=== PATIENT | female | born 1985 | race Caucasian/White ===

== ENCOUNTER 2017-01-27 16:51 | Emergency (ER) | payer OTHER, SELFPAY ==
[2017-01-27] MEDS ORDERED: Ibuprofen 800 MG TAB ONE (18:32)
[2017-01-27] MEDS ORDERED: AMOXicillin 250 MG CAP ONE (18:32)
== END 2017-01-27 18:38 | disposition home or self-care (01) ==
LOC: MADERS 16:51
DX: J02.0 Streptococcal pharyngitis (principal); E03.9 Hypothyroidism, unspecified; F90.9 Attention-deficit hyperactivity disorder, unspecified type; Z79.899 Other long term (current) drug therapy
CPT/HCPCS: 87430; 99283

== ENCOUNTER 2017-07-07 17:40 | Emergency (ER) | payer SELFPAY ==
[~2017-07-07 17:40] MED LIST: Adacel (T-DAP) 0.5 ML VIAL ONE
[2017-07-07] MEDS ORDERED: TETANUS AND DIPHTHERIA TOX/PF 0.5 ML DISP.SYRIN ONE (18:10)
[2017-07-07] MEDS ORDERED: Morphine Sulfate 2 MG/ML SYRINGE ONE (18:17)
[2017-07-07] MEDS ORDERED: Naproxen 500 MG TAB ONE (18:17)
[2017-07-07] MEDS ORDERED: Ondansetron ODT 4 MG TAB ONE (18:17)
== END 2017-07-07 19:15 | disposition home or self-care (01) ==
LOC: MADERS 17:40
DX: T24.211A Burn of second degree of right thigh, initial encounter (principal); T21.20XA Burn of second degree of trunk, unspecified site, initial encounter; T31.0 Burns involving less than 10% of body surface; E03.9 Hypothyroidism, unspecified; F90.9 Attention-deficit hyperactivity disorder, unspecified type; F17.210 Nicotine dependence, cigarettes, uncomplicated; X11.8XXA Contact with other hot tap-water, initial encounter
CPT/HCPCS: 90471; 90715; 96372; J2270; Q0162

== ENCOUNTER 2019-01-04 15:33 | Emergency (ER) | payer MEDICAID, OTHER ==
[2019-01-04] MEDS ORDERED: Tetracaine 0.5% OPHTH SOLN/PF 4 ML BOT ONE (16:23)
== END 2019-01-04 17:00 | disposition home or self-care (01) ==
LOC: MADERS 15:33
DX: H18.822 Corneal disorder due to contact lens, left eye (principal); E03.9 Hypothyroidism, unspecified; F90.9 Attention-deficit hyperactivity disorder, unspecified type; Z87.891 Personal history of nicotine dependence; Z79.899 Other long term (current) drug therapy
CPT/HCPCS: 99283

== ENCOUNTER 2020-04-12 16:32 | Emergency (ER) | payer OTHER, SELFPAY ==
[2020-04-12] MEDS ORDERED: Tetracaine 0.5% OPHTH SOLN/PF 4 ML BOT ONE (16:50)
[2020-04-12] MEDS ORDERED: Fluorescein Opthalmic Strip ONE (16:50)
[2020-04-12] MEDS ORDERED: Erythromycin Base 0.5% Ophth Oint 3.5 gm Tube ONE (18:50)
== END 2020-04-12 18:59 | disposition home or self-care (01) ==
LOC: MADERS 16:32
DX: S05.02XA Injury of conjunctiva and corneal abrasion without foreign body, left eye, initial encounter (principal); E03.9 Hypothyroidism, unspecified; F90.9 Attention-deficit hyperactivity disorder, unspecified type; Z87.891 Personal history of nicotine dependence; Z79.899 Other long term (current) drug therapy; X58.XXXA Exposure to other specified factors, initial encounter
CPT/HCPCS: 99282